=== PATIENT | female | born 1955 | race Caucasian/White ===

== ENCOUNTER → 2017-01-28 | Outpatient (CLI) | payer OTHER ==
[2017-01-28 11:09] LABS: BASO % 0.4 %; BASO ABS # 0.02 K/uL (0-0.2); COMPLETE YES; EOS % 2.8 %; HEMATOCRIT 42.3 % (37-47); IG% 0.2 %; LYMPH % 31.8 %; LYMPH ABS # 1.57 K/uL (1.2-3.4); MEAN CELL VOLUME 85.6 fL (80-100); MEAN CORPUSCULAR HEMOGLOBIN 28.1 pg (25-34); MEAN CORPUSCULAR HGB CONC 32.9 g/dl (32-36); MEAN PLATELET VOLUME 9.8 fL (7.4-10.4); MONO % 11.5 %; NEUT % 53.3 %; PLATELET COUNT 134 K/uL (130-400); RED BLOOD COUNT 4.94 M/uL (4.2-5.4); WHITE BLOOD COUNT 4.94 K/uL (4.8-10.8)
[2017-01-28 11:24] LABS: ALT/SGPT 158 U/L (12-78); AST/SGOT 87 U/L (15-37); BLOOD UREA NITROGEN 11 mg/dl (7-18); BUN/CREATININE RATIO 12.1 (10-20); CALCIUM 8.4 mg/dl (8.5-10.1); CARBON DIOXIDE 28 mmol/L (21-32); CHLORIDE 103 mmol/L (98-107); CREATININE 0.95 mg/dl (0.60-1.20); GLUCOSE 113 mg/dl (70-99); POTASSIUM 4.2 mmol/L (3.5-5.1); SODIUM 138 mmol/L (136-145); URIC ACID 4.9 mg/dl (2.6-7.2)
[2017-01-28 11:32] LABS: ALB/GLOB RATIO 0.9 (0.9-2); ALKALINE PHOSPHATASE 55 U/L (45-117); CHOLESTEROL 144 mg/dl (0-200); CHOLESTEROL/HDL RATIO 3.2; HDL CHOLESTEROL 45 mg/dl; LDL CHOLESTEROL CALCULATED 72 mg/dl; PHOSPHORUS 2.4 mg/dl (2.5-4.9); TRIGLYCERIDES 136 mg/dl (0-150); VERY LOW DENSITY LIPOPROT CALC 27 mg/dl
[2017-01-28 11:42] LABS: ESTIMATED AVERAGE GLUCOSE 131 mg/dl; HA1C FLAG Normal (Normal)
[2017-01-29 09:27] LABS: C-REACTIVE PROT HIGHSEN 3.3 MG/L
== END | disposition home or self-care (01) ==
LOC: C.LAB1850 07:53
PROVIDERS: ATTEND Family Medicine
DX: R73.09 Other abnormal glucose (principal); E55.9 Vitamin D deficiency, unspecified; D51.9 Vitamin B12 deficiency anemia, unspecified

== ENCOUNTER → 2017-08-21 | Outpatient (CLI) | payer OTHER ==
[2017-08-21 10:36] LABS: BASO % 0.5 %; BASO ABS # 0.02 K/uL (0-0.2); COMPLETE YES; EOS % 2.6 %; HEMATOCRIT 41.5 % (37-47); IG% 0.2 %; LYMPH % 38.1 %; LYMPH ABS # 1.59 K/uL (1.2-3.4); MEAN CELL VOLUME 86.3 fL (80-100); MEAN CORPUSCULAR HEMOGLOBIN 29.5 pg (25-34); MEAN CORPUSCULAR HGB CONC 34.2 g/dl (32-36); MEAN PLATELET VOLUME 9.8 fL (7.4-10.4); MONO % 11.3 %; NEUT % 47.3 %; PLATELET COUNT 119 K/uL (130-400); RED BLOOD COUNT 4.81 M/uL (4.2-5.4); WHITE BLOOD COUNT 4.17 K/uL (4.8-10.8)
[2017-08-21 10:51] LABS: ALT/SGPT 160 U/L (12-78); AST/SGOT 97 U/L (15-37); BLOOD UREA NITROGEN 16 mg/dl (7-18); BUN/CREATININE RATIO 18.9 (10-20); CALCIUM 8.7 mg/dl (8.5-10.1); CARBON DIOXIDE 24 mmol/L (21-32); CHLORIDE 106 mmol/L (98-107); CREATININE 0.86 mg/dl (0.60-1.20); GLUCOSE 111 mg/dl (70-99); SODIUM 137 mmol/L (136-145)
[2017-08-21 11:02] LABS: ALB/GLOB RATIO 0.9 (0.9-2); ALKALINE PHOSPHATASE 56 U/L (45-117); CHOLESTEROL 149 mg/dl (0-200); CHOLESTEROL/HDL RATIO 3.5; HDL CHOLESTEROL 43 mg/dl; LDL CHOLESTEROL CALCULATED 79 mg/dl; TRIGLYCERIDES 136 mg/dl (0-150); URIC ACID 5.5 mg/dl (2.6-7.2); VERY LOW DENSITY LIPOPROT CALC 27 mg/dl
[2017-08-21 11:08] LABS: ESTIMATED AVERAGE GLUCOSE 126 mg/dl; HA1C FLAG Normal (Normal)
[2017-08-22 14:28] LABS: C-REACTIVE PROT HIGHSEN 3.1 MG/L
== END | disposition home or self-care (01) ==
LOC: C.LAB1850 07:53
PROVIDERS: ATTEND Family Medicine
DX: R73.09 Other abnormal glucose (principal); E55.9 Vitamin D deficiency, unspecified; D51.9 Vitamin B12 deficiency anemia, unspecified

== ENCOUNTER → 2018-02-16 | Outpatient (CLI) | payer OTHER ==
[2018-02-16 10:10] LABS: BASO % 0.6 %; BASO ABS # 0.03 K/uL (0-0.2); EOS % 2.4 %; EOS ABS # 0.12 K/uL (0-0.5); HEMOGLOBIN 14.8 g/dL (12.0-16.0); LYMPH % 33.3 %; LYMPH ABS # 1.68 K/uL (1.2-3.4); MEAN CELL VOLUME 85.7 fL (80-100); MEAN CORPUSCULAR HEMOGLOBIN 28.2 pg (25-34); MEAN CORPUSCULAR HGB CONC 32.9 g/dl (32-36); MEAN PLATELET VOLUME 9.9 fL (7.4-10.4); MONO % 11.3 %; MONO ABS # 0.57 K/uL (0.11-0.59); NEUT % 52.4 %; NEUT ABS # 2.65 K/uL (1.4-6.5); PLATELET COUNT 121 K/uL (130-400); RED CELL DISTRIBUTION WIDTH CV 13.1 % (11.5-14.5); RED CELL DISTRIBUTION WIDTH SD 41.2 fL (36.4-46.3); WHITE BLOOD COUNT 5.05 K/uL (4.8-10.8)
[2018-02-16 10:39] LABS: ALBUMIN 3.7 gm/dl (3.4-5.0); ALT/SGPT 169 U/L (12-78); AST/SGOT 100 U/L (15-37); BLOOD UREA NITROGEN 15 mg/dl (7-18); CALCIUM 9.4 mg/dl (8.5-10.1); CARBON DIOXIDE 23 mmol/L (21-32); CHOLESTEROL 161 mg/dl (0-200); CREATININE 0.82 mg/dl (0.60-1.20); GLUCOSE 110 mg/dl (70-99); POTASSIUM 4.1 mmol/L (3.5-5.1); SODIUM 135 mmol/L (136-145); URIC ACID 4.7 mg/dl (2.6-7.2)
[2018-02-16 10:49] LABS: ALKALINE PHOSPHATASE 62 U/L (45-117); LDL CHOLESTEROL CALCULATED 84 mg/dl; TOTAL PROTEIN 8.3 gm/dl (6.4-8.2); TRANSFERRIN 267 mg/dl (200-360)
== END | disposition home or self-care (01) ==
LOC: C.LAB1850 09:10
PROVIDERS: ATTEND Family Medicine
DX: E88.81 Metabolic syndrome and other insulin resistance (principal); E55.9 Vitamin D deficiency, unspecified; D51.9 Vitamin B12 deficiency anemia, unspecified; E78.9 Disorder of lipoprotein metabolism, unspecified; R53.83 Other fatigue

== ENCOUNTER → 2018-02-18 | Outpatient (CLI) | payer OTHER ==
--- NOTE | 2018-02-18 08:29 | DIAGNOSTIC IMAGING REPORT ---
BILIARY ULTRASOUND CLINICAL HISTORY: RUQ PAIN COMPARISON STUDY: No previous studies for comparison. FINDINGS: The study was difficult from a technical standpoint due to the patient's body habitus. The pancreas appeared normal as visualized. There is increased hepatic echogenicity, possibly secondary to hepatic steatosis. There is no ductal dilatation. The common bile duct measured 5 mm. There is a 17 mm gallstone. There is no gallbladder wall thickening and no evidence of pericholecystic fluid. There is no evidence of hydronephrosis. IMPRESSION: 1. Cholelithiasis. No evidence of ductal dilatation 2. Possible hepatic steatosis Electronically signed by: Benny Feliciano M.D. 02/18/2018 8:27 AM Dictated Date/Time: 02/18/2018 8:26 AM
[2018-02-18 11:14] LABS: HEP C IGG 13 YRS+OLDER_RFLX NEG (NEG)
[2018-02-20 17:45] LABS: ANA SCREEN TC 249X POSITIVE (NEGATIVE)
== END | disposition home or self-care (01) ==
LOC: C.ULTR 07:50
PROVIDERS: ATTEND Family Medicine
DX: R94.5 Abnormal results of liver function studies (principal); M25.50 Pain in unspecified joint; R10.11 Right upper quadrant pain; K80.20 Calculus of gallbladder without cholecystitis without obstruction

== ENCOUNTER 2024-05-07 15:58 | Observation (INO) ==
--- NOTE | 2024-05-07 16:37 | Emergency Department Note ---
Impression & Plan Diarrhea, Pancytopenia ED Provider Note ED Provider Note NAME: AZEB DELGADO AGE:68 SEX: Female : 1955 ARRIVES VIA: Private vehicle INFORMANT: Patient ED PROVIDER(s): Livier Linares DO CHIEF COMPLAINT: Referred from oncology HPI: This is a 68-year-old female with a history of metastatic ovarian cancer who presents to the emergency department after being referred here by Dr. Moreland, of oncology after he saw her in clinic today. Patient underwent recent surgery at [facility] and was discharged 1 week ago. She states she underwent a chemotherapeutic infusion into the peritoneal cavity. He states she has had diarrhea since this infusion. Due to abnormal labs noted by her PCP on follow-up she came in yesterday was given IV fluids, labs rechecked, and physician spoke with Dr. Moreland who recommended empiric Levaquin and discharged home with close follow-up. She was seen in clinic today by him, repeat labs obtained which showed a worsening ANC and worsening platelet level. Patient with persistent diarrhea. While this all is likely the side effects of her chemotherapy, he is concern for worsening condition and risk of sepsis. He recommended cultures including stool cultures for C. difficile, IV fluid hydration, check of patient's labs otherwise, and admission for continued monitoring. Patient states she has had diarrhea since discharge, approximately 6 episodes daily. She states she is intermittently noted blood but had also been on Eliquis prophylactically since her surgery. She states her last dose was yesterday morning and she was instructed to stop it last night. She has not seen any blood in recent days. She denies any coming abdominal pain or cramping, denies any sense of bloating. She denies any nausea or vomiting although states she has had difficulty eating and maintaining hydration as every time she eats or drinks she has another episode of diarrhea. She denies fevers or chills. PAST MEDICAL HISTORY:See Below PAST SURGICAL HISTORY:See Below FAMILY HISTORY:See Below SOCIAL HISTORY:See Below HOME MEDICATIONS:See Below ALLERGIES:See Below VITALS:See Below PHYSICAL EXAMINATION: GENERAL: alert, well nourished, no distress, non-toxic, alopecia EYE EXAM: normal conjunctiva, PERRL and EOM's grossly intact OROPHARYNX: no exudate, no erythema, lips, buccal mucosa, and tongue normal and mucous membranes are moist NECK: supple, no nuchal rigidity, no adenopathy, non-tender LUNGS: Clear to auscultation. Normal chest wall mechanics, no w/r/r HEART: no murmurs, S1 normal and S2 normal, port noted left ant/sup chest wall ABDOMEN: abdomen soft, non-tender, normo-active bowel sounds, no masses, no rebound or guarding. BACK: Back is symmetrical on inspection and there is no deformity, no midline tenderness, no CVA tenderness. SKIN: no rashes, petechiae, orbruising UPPER EXTREMITIES: upper extremities are grossly normal. FROM, nml pulses b/l. LOWER EXTREMITIES: No pitting edema. FROM, nml pulses b/l. NEURO EXAM: Normal sensorium, cranial nerves II-XII grossly intact, normal speech, no facial droop,nogross weakness of arms, no gross weakness of legs. Gross sensation intact. No ataxia. Vital Signs: reviewed and remarkable Differential Diagnosis: dehydration, stroke, anemia, hypoglycemia, hyponatremia, hypernatremia, urinary tract infection, pneumonia, bronchitis, sepsis, gastroenteritis, additional abdominal pathology, metabolic abnormalities, as well as others were considered MEDICAL DECISION MAKING: This is a 68-year-old female who presents emergency department after being referred here by oncology who also came to the emergency department with her to help facilitate expeditious treatment and admission. She was afebrile and vital signs stable. Patient with persistent diarrhea since recent surgery at [facility]. Labs drawn and sent, IV established, EKG and chest ray performed at bedside interpreted me and patient monitored on telemetry. She was started on IV fluids due to her ongoing diarrhea. Culture sent additionally. Case was discussed with oncology in the emergency department, Dr. Moreland. Patient had no abdominal pain and did asked to eat and drink. No additional imaging performed at this time. Case discussed with [facility] hospitalist team for additional evaluation and management. Consultation(s): 1604: Discussed with Dr. Moreland when patient arrived in the ER. 1800: Discussed with Dr. Woodard, [facility] hospitalist team. ER Treatment Provided: See below Diagnostics Interpreted By Me: -ECG: Normal sinus at 94, normal axis, normal intervals, no nonspecific ST/T wave changes -Cardiac Monitoring: An order was placed for continuous cardiac monitoring. The monitor shows a rate of 80 with normal sinus rhythm. -Laboratory studies: As stated above and show below. -Imaging studies: X-ray Chest: A single view study of the chest was reviewed and was negative for cardiomegaly, focal infiltrate, effusion, pulmonary edema, or wide mediastinum. Triage Nursing Note Reviewed Prior/Outside Records Reviewed -outpatient oncology office note reviewed Past Med/Surg History Problem List (Updated 05/07/24 @ 23:44 by Livier Linares DO) Pancytopenia (Acute) Antineoplastic chemotherapy induced pancytopenia Diarrhea (Acute) Status post surgery (Acute) Pancytopenia (Acute) Pancytopenia Recurrent herpes simplex Carcinoma of peritoneum Atypical glandular cells on cervical Pap smear Thickened endometrium Abnormal CT scan Osteopenia of both hips Migraine headache with aura Mixed hyperlipidemia Alcohol dependence with alcohol-induced mood disorder Impaired glucose metabolism Gastritis Cirrhosis Encounter for pre-operative examination Hypertension Endometrial polyp Adhesive capsulitis of left shoulder Steatohepatitis Liver nodule Adult situational stress disorder Postablative hypothyroidism Chronic gastritis without bleeding hx-"no current issues" Medical History Peritoneal carcinomatosis stage 3, official dx 11/27/23; most recent chemo tx 12/09/23-next tx 12/30/23 Diabetes diet controlled Hyperlipidemia pt denies-no current meds Genital HSV History of skin cancer BCC/SCC Cirrhosis Follows with [facility], "compensated, chronic stable.. MELD labs appear unremarkable" per 03/2023 visit GERD (gastroesophageal reflux disease) hx-no current meds Anxiety Migraine Hypertension Arthritis Graves' disease Hx- had iodine treatment Surgical History Port-A-Cath in place (01/13/24) Insertion of Left Subclavian Access Port with Fluoroscopy - Jian Link DO Hx of laparoscopy 10/2023; w/bx. Status post hysteroscopy w/d&c, colposcopy Hx of colonoscopy History of esophagogastroduodenoscopy (EGD) Status post Mohs surgery Nose Hx laparoscopic cholecystectomy Laparoscopic Cholecystectomy, right lobe liver biopsy; enterolysis (09/06/2021, [facility]) History of breast biopsy benign History of dilatation and curettage Family History Grandmother Cancer stomach Father Alcoholism Mother Diabetes Depression Hypertension Lung cancer Denies family history of Ovarian cancer Prostate cancer Myocardial infarction Breast cancer Colorectal cancer Social History Smoking Status: Never smoker Second Hand Exposure: Yes (hx as child); Do You Dip or Chew Tobacco: No; Hx Alcohol Use: No Hx Substance Use: No Preferred Language: Kinyarwanda Communication Ability: Effective Visual Impairment: No Limitations Assistant Project Manager Required: No Beliefs That Will Affect Care: None marital status: Current Living Situation: Alone Current Living Situation Comment: Lives alone in an apartment current occupational status: retired How many Children do You have: 3 Feels Safe at Home: Yes Safety Concerns: Feels Safe At This Time Diet: regular during the past year weight has: decreased > 10 lbs Seatbelt Use: always Assistive Devices: Cane and Glasses Allergies Allergies Allergy/AdvReac Type Severity Reaction Status Date / Time azithromycin Allergy Unknown Hives Verified 05/07/24 19:28 (hands) clarithromycin [From Biaxin] Allergy Unknown Unknown Verified 05/07/24 19:28 bee venom protein (honey bee) Allergy Hives Verified 05/07/24 19:28 Home Meds Home Medications Medication Instructions Recorded Confirmed prochlorperazine maleate 10 mg 10 mg PO Q6H PRN Nausea And 02/04/24 05/07/24 tablet Vomiting acetaminophen 500 mg tablet 1,000 mg PO Q8H PRN Pain 05/04/24 05/07/24 apixaban 2.5 mg tablet 2.5 mg PO .ON HOLD 05/04/24 05/07/24 oxycodone 5 mg tablet 5 mg PO Q6H PRN pain 05/04/24 05/07/24 Previous Rx's Medication Instructions Recorded epinephrine 0.3 mg/0.3 mL 0.3 mg (0.3 mL) IM UD PRN Allergic 08/07/22 injection, auto-injector Reaction #2 ea rizatriptan 10 mg tablet (Maxalt) See Rx Instructions PO .COMPLEX #7 11/11/22 tabs acyclovir 400 mg tablet 400 mg PO TID PRN herpes outbreak 12/31/23 #90 tabs citalopram 10 mg tablet 10 mg PO QAM #90 tabs 05/06/24 levofloxacin 500 mg tablet 500 mg PO DAILY 7 days #7 tabs 05/06/24 levothyroxine 150 mcg tablet 150 mcg PO QAM #90 tabs 05/06/24 losartan 100 mg tablet 100 mg PO QAM #90 tabs 05/06/24 Results & Data (ED) Vital Signs Vital Signs - 24 hr 05/07/24 16:04 05/07/24 17:18 05/07/24 17:30 Temperature 37.3 C Temperature Source Oral Pulse Rate 94 H 78 Pulse Rate from SpO2 Sensor Respiratory Rate 18 Respiratory Effort / Characteristics Non-Labored Respiratory Depth Normal Respiratory Pattern Regular Blood Pressure 126/80 Blood Pressure Mean 95 Pulse Oximetry 97 98 Oxygen Delivery Method Room Air Room Air Sepsis Recent Fever Within 48 Hours No Sepsis New/Unexplained Change in Mental Status N/A Sepsis Action Taken by Nursing No Action Required 05/07/24 17:45 05/07/24 18:00 Temperature Temperature Source Pulse Rate 77 70 Pulse Rate from SpO2 Sensor 76 70 Respiratory Rate 17 14 Respiratory Effort / Characteristics Respiratory Depth Respiratory Pattern Blood Pressure 134/92 131/74 Blood Pressure Mean 106 93 Pulse Oximetry 98 98 Oxygen Delivery Method Room Air Room Air Sepsis Recent Fever Within 48 Hours Sepsis New/Unexplained Change in Mental Status Sepsis Action Taken by Nursing Laboratory Data 05/07/24 17:10 05/07/24 17:10 Lab Results 05/07/24 05/07/24 Range/Units 17:10 17:28 WBC 1.82 L (4.8-10.8) K/ul RBC 3.30 L (4.20-5.40) M/uL Hgb 9.5 L (12.0-16.0) g/dl Hct 30.7 L (37.0-47.0) % MCV 93.0 (80.0-100.0) fL MCH 28.8 (25.0-34.0) pg MCHC 30.9 L (32.0-36.0) g/dL RDW Std Deviation 41.1 (36.4-46.3) fL RDW Coeff of Willem 12.7 (11.5-14.5) % Plt Count 30 L (130-400) K/uL MPV 12.4 (9.4-12.4) fL Immature Gran % (Auto) 0.5 % Neut % (Auto) 21.0 % Lymph % (Auto) 42.9 % Boundary % (Auto) 26.9 % Eos % (Auto) 8.2 % Baso % (Auto) 0.5 % Neut # (Auto) 0.38 L* (1.40-6.50) K/uL Lymph # (Auto) 0.78 L (1.20-3.40) K/uL Boundary # (Auto) 0.49 (0.11-0.59) K/uL Eos # (Auto) 0.15 (0.00-0.50) K/uL Baso # (Auto) 0.01 (0.00-0.20) K/uL Immature Gran # (Auto) 0.01 (0.01-0.20) K/uL Ovalocytes 1+ Sodium 138 (136-145) mmol/L Potassium 3.5 (3.5-5.1) mmol/L Chloride 108 H (98-107) mmol/L Carbon Dioxide 23 (21-32) mmol/L Anion Gap 7 (3-11) BUN 9 (6-23) mg/dl Creatinine 0.79 (0.6-1.2) mg/dl Est Cr Clr Drug Dosing 64.2 ml/min Est GFR ( Amer) 89.1 ml/min Est GFR (Non-Af Amer) 76.9 ml/min BUN/Creatinine Ratio 11.4 (10-20) Glucose 115 H (70-99(Fasting)) mg/dl Lactate 1.1 (0.4-2.0) mmol/L Calcium 9.0 (8.6-10.3) mg/dl Phosphorus 3.0 (2.5-4.9) mg/dl Magnesium 1.7 (1.7-2.4) mg/dl Total Bilirubin 0.2 (0.2-1.0) mg/dl Direct Bilirubin 0.0 (0-0.2) mg/dl AST 26 (13-39) U/L ALT 36 (7-52) U/L Alkaline Phosphatase 44 (34-104) U/L Troponin I High Sens 8.3 (0-14) pg/ml Total Protein 6.4 (6.0-8.3) gm/dl Albumin 3.4 (3.4-5.0) gm/dl Procalcitonin 0.08 (0-0.5) ng/ml Administered Medications Acyclovir (Acyclovir 400 Mg Tab) 400 mg PO TID FLORES Stop: 05/12/24 22:35 Last Admin: 05/07/24 23:25 Dose: 400 mg Documented By: HILDA Lactated Ringer's (Lr) 1,000 mls @ 125 mls/hr IV .Q8H FLORES Stop: 05/08/24 17:59 Last Admin: 05/07/24 18:10 Dose: 125 mls/hr Documented By: BEA Levofloxacin (Levofloxacin 500 Mg Tab) 500 mg PO Q24H FLORES; Protocol Stop: 06/06/24 21:59 Last Admin: 05/07/24 23:25 Dose: 500 mg Documented By: KS Discontinued Medications Filgrastim (Filgrastim 300 Mcg/Ml Vial) 300 mcg SQ ONE ONE Stop: 05/07/24 21:31 Last Admin: 05/07/24 23:24 Dose: 300 mcg Documented By: HILDA Lactated Ringer's (Lr) 1,000 mls @ 999 mls/hr IV .Q1H1M ONE Stop: 05/07/24 17:06 Last Infusion: 05/07/24 18:06 Dose: Infused Documented By: Admin: 05/07/24 17:08 Dose: 999 mls/hr Documented By: BEA Potassium Chloride (Potassium Chloride Crtab 20 Meq Tabcr) 20 meq PO NOW STA Stop: 05/07/24 18:59 Last Admin: 05/07/24 19:21 Dose: 20 meq Documented By: [facility] Imaging Data Radiologist's Impression: Chest X-Ray 05/07/24 16:06 XR chest 1V portable CLINICAL HISTORY: Sepsis TECHNIQUE: Single frontal radiograph of the chest was obtained. Comparison: Comparison is made to chest radiograph 01/13/2024 FINDINGS: No lines and tubes are seen. The cardiomediastinal silhouette is normal. The lungs are clear. No evidence of pleural effusion or pneumothorax. IMPRESSION: No acute abnormalities and in particular no radiographic evidence of pneumonia. ACT 112: Negative or not required by law. Electronically signed by: Osmany La M.D. 05/07/2024 5:13 PM Discharge Plan Visit Data Chief Complaint: Diarrhea Stated Complaint: DIARRHEA, PANCYTOPENIA ED Provider: Livier Linares Discharge Problem: Diarrhea, Pancytopenia Patient Disposition: Admitted As Inpatient Discharge Instructions Interventions: ED Discharge Assessment Last Done: 05/07/24 22:02
[2024-05-07] MEDS: LACTATED RINGER'S 1,000 ML IV ONE (17:08)
--- NOTE | 2024-05-07 17:15 | XRay Report ---
XR chest 1V portable CLINICAL HISTORY: Sepsis TECHNIQUE: Single frontal radiograph of the chest was obtained. Comparison: Comparison is made to chest radiograph 01/13/2024 FINDINGS: No lines and tubes are seen. The cardiomediastinal silhouette is normal. The lungs are clear. No evid ence of pleural effusion or pneumothorax. IMPRESSION: No acute abnormalities and in particular no radiographic evidence of pneumonia. ACT 112: Negative or not required by law. Electronically signed by: Osmany La M.D. 05/07/2024 5:13 PM
[2024-05-07 17:37] LABS: Hematocrit (blood only) 30.7 % (37.0-47.0); Hemoglobin 9.5 g/dl (12.0-16.0); Mean Corpuscular Hemoglobin 28.8 pg (25.0-34.0); Mean Corpuscular Hgb Conc 30.9 g/dL (32.0-36.0); Mean Platelet Volume 12.4 fL (9.4-12.4); Platelet Count 30 K/uL (130-400); RDW Coefficient of Variation 12.7 % (11.5-14.5); RDW Standard Deviation 41.1 fL (36.4-46.3); White Blood Count 1.82 K/ul (4.8-10.8)
[2024-05-07 17:54] LABS: Albumin Level 3.4 gm/dl (3.4-5.0); BUN Creatinine Ratio 11.4 (10-20); Bilirubin,Total 0.2 mg/dl (0.2-1.0); Creatinine Clr Calc Pharmacy 64.2 ml/min; Est GFR (African American) 89.1 ml/min; Est GFR (Non-African American) 76.9 ml/min; Magnesium 1.7 mg/dl (1.7-2.4); Potassium 3.5 mmol/L (3.5-5.1); Total Protein 6.4 gm/dl (6.0-8.3)
[2024-05-07 18:01] LABS: Troponin I High Sensitivity 8.3 pg/ml (0-14)
[2024-05-07 18:02] LABS: Basophils # (auto) 0.01 K/uL (0.00-0.20); Basophils % (auto) 0.5 %; Eosinophils # (auto) 0.15 K/uL (0.00-0.50); Eosinophils % (auto) 8.2 %; Immature Granulocytes # (auto) 0.01 K/uL (0.01-0.20); Immature Granulocytes % (auto) 0.5 %; Lymphocytes # (auto) 0.78 K/uL (1.20-3.40); Lymphocytes % (auto) 42.9 %; Monocytes # (auto) 0.49 K/uL (0.11-0.59); Monocytes % (auto) 26.9 %; Neutrophils # (auto) 0.38 K/uL (1.40-6.50); Ovalocytes 1+
--- NOTE | 2024-05-07 18:09 | History & Physical Report ---
Date of Service May 07, 2024 Assessment & Plan (1) Antineoplastic chemotherapy induced pancytopenia: Plan: Neupogen Consult hematology Continue empiric Levaquin Shingles lesions but no cellulitis on back Holding Eliquis while Plt < 50 Follow up blood cultures - no fever to suggest need for broader spectrum antibiotics (2) Diarrhea: Plan: Stool and c. diff PCR Start Imodium PRN if negative (3) Peritoneal carcinomatosis: Plan VTE Prophyalxis - ELiquis on hold Diet - low fiber, heart healthy Disposition - admit to med/surg Admission and Anticipated Discharge Date Admission Date: May 07, 2024 History of Present Illness Chief Complaint: Diarrhea Pancytopenia Primary Care Provider: Sam Almonte MD Chelsey Sexton is a 68 year old female with primary peritoneal carcinoma with carcinomatosis. Previously treated with carboplatin and Taxol chemotherapy - last treatment March 02 and underwent omentectomy, appendectomy, b/l salpingo- oophorectomy, cytoreduction of tumor left paracolic gutter and cytoreduction of tumor from pelvis and small bowel with instillation of heated intraperitoneal chemotherapy on April 23. Since the surgery at [facility] she has been having diarrhea with 6 bowel movements a day. Loose and watery. No fever or chills. Her pancytopenia has also been getting worse and her oncologist recommended coming to the ER for blood cultures, stool pCR and c. diff testing today. She denies any significant abdominal pain, nausea or vomiting. She took an immodium this morning and diarrhea has actually improved today. She also noted an outbreak of shingles on her back for which she started acyclovir 2 days ago although she think she lesions have been going on for longer. She was seen in the ER yesterday and started on empiric Levaquin due to pancytopenia. Allergies Allergy/AdvReac Type Severity Reaction Status Date / Time azithromycin Allergy Unknown Hives Verified 05/07/24 19:28 (hands) clarithromycin [From Biaxin] Allergy Unknown Unknown Verified 05/07/24 19:28 bee venom protein (honey bee) Allergy Hives Verified 05/07/24 19:28 Home Medications Medication Instructions Recorded Confirmed Type epinephrine 0.3 mg/0.3 mL 0.3 mg (0.3 mL) IM UD PRN Allergic 08/07/22 05/07/24 Rx injection, auto-injector Reaction #2 ea rizatriptan 10 mg tablet (Maxalt) See Rx Instructions PO .COMPLEX #7 11/11/22 05/07/24 Rx tabs acyclovir 400 mg tablet 400 mg PO TID PRN herpes outbreak 12/31/23 05/07/24 Rx #90 tabs prochlorperazine maleate 10 mg 10 mg PO Q6H PRN Nausea And 02/04/24 05/07/24 History tablet Vomiting acetaminophen 500 mg tablet 1,000 mg PO Q8H PRN Pain 05/04/24 05/07/24 History apixaban 2.5 mg tablet 2.5 mg PO .ON HOLD 05/04/24 05/07/24 History oxycodone 5 mg tablet 5 mg PO Q6H PRN pain 05/04/24 05/07/24 History citalopram 10 mg tablet 10 mg PO QAM #90 tabs 05/06/24 05/07/24 Rx levofloxacin 500 mg tablet 500 mg PO DAILY 7 days #7 tabs 05/06/24 05/07/24 Rx levothyroxine 150 mcg tablet 150 mcg PO QAM #90 tabs 05/06/24 05/07/24 Rx losartan 100 mg tablet 100 mg PO QAM #90 tabs 05/06/24 05/07/24 Rx Past Med/Surg History Problem List (Updated 05/07/24 @ 23:44 by Livier Linares DO) Pancytopenia (Acute) Antineoplastic chemotherapy induced pancytopenia Diarrhea (Acute) Status post surgery (Acute) Pancytopenia (Acute) Pancytopenia Recurrent herpes simplex Carcinoma of peritoneum Atypical glandular cells on cervical Pap smear Thickened endometrium Abnormal CT scan Osteopenia of both hips Migraine headache with aura Mixed hyperlipidemia Alcohol dependence with alcohol-induced mood disorder Impaired glucose metabolism Gastritis Cirrhosis Encounter for pre-operative examination Hypertension Endometrial polyp Adhesive capsulitis of left shoulder Steatohepatitis Liver nodule Adult situational stress disorder Postablative hypothyroidism Chronic gastritis without bleeding hx-"no current issues" Medical History Peritoneal carcinomatosis stage 3, official dx 11/27/23; most recent chemo tx 12/09/23-next tx 12/30/23 Diabetes diet controlled Hyperlipidemia pt denies-no current meds Genital HSV History of skin cancer BCC/SCC Cirrhosis Follows with [facility], "compensated, chronic stable.. MELD labs appear unremarkable" per 03/2023 visit GERD (gastroesophageal reflux disease) hx-no current meds Anxiety Migraine Hypertension Arthritis Graves' disease Hx- had iodine treatment Surgical History Port-A-Cath in place (01/13/24) Insertion of Left Subclavian Access Port with Fluoroscopy - Jian Link DO Hx of laparoscopy 10/2023; w/bx. Status post hysteroscopy w/d&c, colposcopy Hx of colonoscopy History of esophagogastroduodenoscopy (EGD) Status post Mohs surgery Nose Hx laparoscopic cholecystectomy Laparoscopic Cholecystectomy, right lobe liver biopsy; enterolysis (09/06/2021, [facility]) History of breast biopsy benign History of dilatation and curettage Family History Grandmother Cancer stomach Father Alcoholism Mother Diabetes Depression Hypertension Lung cancer Denies family history of Ovarian cancer Prostate cancer Myocardial infarction Breast cancer Colorectal cancer Social History Smoking Status: Never smoker Second Hand Exposure: Yes (hx as child); Do You Dip or Chew Tobacco: No; Hx Alcohol Use: No Hx Substance Use: No Preferred Language: Libyan Communication Ability: Effective Visual Impairment: No Limitations Hot Box Checker Required: No Beliefs That Will Affect Care: None marital status: Current Living Situation: Alone Current Living Situation Comment: Lives alone in an apartment current occupational status: retired How many Children do You have: 3 Feels Safe at Home: Yes Safety Concerns: Feels Safe At This Time Diet: regular during the past year weight has: decreased > 10 lbs Seatbelt Use: always Assistive Devices: Cane and Glasses Review of Systems Review of Systems: All systems reviewed & are unremarkable except as noted in HPI & below Physical Exam Constitutional: WD/WN, vitals as above Eyes: PERRL, conjunctivae normal, anicteric sclerae ENMT: external ear and nose normal, oropharynx normal Respiratory: normal respiratory effort, lungs clear to auscultation Cardiovascular: RRR, no murmur, no edema Gastrointestinal (Abdomen): normal bowel sounds, soft, nontender, no hepatosplenomegaly Musculoskeletal: no cyanosis or clubbing, extremities motor strength 5/5 Skin: crusted lesion on back without surrounding cellulitis changes Neurologic: moves all extremities and awake; not confused Psychiatric: A+Ox3, euthymic affect Results & Data Results & Data Vital Signs (Past 12 Hours) Vital Signs Temp Pulse Resp BP Pulse Ox O2 Del Method 05/07/24 18:00 70 14 131/74 98 Room Air 05/07/24 17:45 77 17 134/92 98 Room Air 05/07/24 17:18 98 Room Air 05/07/24 16:04 37.3 C 94 H 18 126/80 97 Room Air Laboratory Results Abnormal lab results 05/07/24 Range/Units 17:10 WBC 1.82 L (4.8-10.8) K/ul RBC 3.30 L (4.20-5.40) M/uL Hgb 9.5 L (12.0-16.0) g/dl Hct 30.7 L (37.0-47.0) % MCHC 30.9 L (32.0-36.0) g/dL Plt Count 30 L (130-400) K/uL Neut # (Auto) 0.38 L* (1.40-6.50) K/uL Lymph # (Auto) 0.78 L (1.20-3.40) K/uL Chloride 108 H (98-107) mmol/L Glucose 115 H (70-99(Fasting)) mg/dl Diagnostic Findings XR chest 1V portable CLINICAL HISTORY: Sepsis TECHNIQUE: Single frontal radiograph of the chest was obtained. Comparison: Comparison is made to chest radiograph 01/13/2024 FINDINGS: No lines and tubes are seen. The cardiomediastinal silhouette is normal. The lungs are clear. No evidence of pleural effusion or pneumothorax. IMPRESSION: No acute abnormalities and in particular no radiographic evidence of pneumonia. Medications Administered ER Medications Given: LR bolus 1L LR @ 125ml/hr ECG Rate (beats per minute): 94 Rhythm: normal sinus Findings: no acute ischemic change Comparison ECG Date: from (May 06, 2024) Change: no significant change Code Status & VTE Plan Code Status Full VTE Prophylaxis Plan VTE Prophylaxis will be ordered: Yes PG Care Time/CCT Total # of Minutes Spent Total Time Spent with Patient: Total time spent is greater than 50% in coordination of care (as documented) at patient's floor/unit and/or counseling patient: Coding Level of Care Code 31846 INT INP/OBS CARE MIN Diagnoses Antineoplastic chemotherapy induced pancytopenia D61.810; T45.1X5A Diarrhea R19.7 Peritoneal carcinomatosis C78.6
[2024-05-07] MEDS: LACTATED RINGER'S 1,000 ML IV SCH (18:10)
[2024-05-07 18:37] LABS: Appearance Urine Clear (Clear); Bilirubin Urine Negative (Negative); Blood Urine Negative (Negative); Color Urine Yellow; Glucose Urine UA Negative (Negative); Ketones Urine Negative (Negative); Leukocyte Esterase Urine Negative (Negative); Nitrite Urine Negative (Negative); Protein Urine Negative (Negative); Specific Gravity Urine 1.007 (1.000-1.030); Urobilinogen Urine Negative (Negative)
[2024-05-07 19:03] LABS: Adenovirus F 40/41 PCR Not Detected (NotDetected); Astrovirus PCR Not Detected (NotDetected); Campylobacter PCR Not Detected (NotDetected); Cryptosporidium PCR Not Detected (NotDetected); Cyclospora cayetanensis PCR Not Detected (NotDetected); Entamoeba histolytica PCR Not Detected (NotDetected); Enteroaggregative E.coli(EAEC) Not Detected (NotDetected); Enteropathogenic E.coli (EPEC) Not Detected (NotDetected); Enterotoxigenic E.coli (ETEC) Not Detected (NotDetected); Giardia lamblia PCR Not Detected (NotDetected); Norovirus GI/GII PCR Not Detected (NotDetected); Plesiomonas shigelloides PCR Not Detected (NotDetected); Rotavirus A PCR Not Detected (NotDetected); Salmonella PCR Not Detected (NotDetected); Sapovirus PCR Not Detected (NotDetected); Shiga-like Toxin E.coli (STEC) Not Detected (NotDetected); Shigella/Enteroinvasive E.coli Not Detected (NotDetected); Vibrio cholerae PCR Not Detected (NotDetected); Vibrio species PCR Not Detected (NotDetected); Yersinia enterocolitica PCR Not Detected (NotDetected)
[2024-05-07] MEDS: POTASSIUM CHLORIDE CRTAB 20 MEQ TABCR PO STA (19:21)
[2024-05-07] MEDS ORDERED: oxyCODONE HCL IR 5 MG TAB (IMMEDIATE RELEASE) PO PRN (22:36)
[2024-05-07] MEDS ORDERED: PROCHLORPERAZINE MALEATE 10 MG TAB PO PRN (22:36)
[2024-05-07] MEDS: FILGRASTIM 300 MCG/ML VIAL SQ ONE (23:24)
[2024-05-07] MEDS: ACYCLOVIR 400 MG TAB PO SCH (23:25)
[2024-05-07] MEDS: levoFLOXacin 500 MG TAB PO SCH (23:25)
[2024-05-08] MEDS: LEVOTHYROXINE SODIUM 150 MCG TABLET PO SCH (05:26)
--- NOTE | 2024-05-08 07:20 | Electrocardiogram Report ---
Test Reason : Blood Pressure : / mmHG Vent. Rate : 094 BPM Atrial Rate : 094 BPM P-R Int : 168 ms QRS Dur : 090 ms QT Int : 350 ms P-R-T Axes : 034 026 041 degrees QTc Int : 437 ms Normal sinus rhythm Nonspecific T wave abnormality Abnormal ECG When compared with ECG of 06-MAY-2024 19:21, No significant change was found Confirmed by Ramon Aden ([id number]) on 05/08/2024 7:20:41 AM Referred By: Chris Moreland Confirmed By:Tigre Aden
[2024-05-08 08:26] LABS: Albumin Globulin Ratio 1.1 (0.9-2); Albumin Level 3.2 gm/dl (3.4-5.0); Bilirubin,Total 0.3 mg/dl (0.2-1.0); Calcium 8.8 mg/dl (8.6-10.3); Creatinine Clr Calc Pharmacy 72.5 ml/min; Est GFR (African American) 103.2 ml/min; Globulin 2.9 gm/dl (2.5-4.0); Magnesium 1.5 mg/dl (1.7-2.4); Phosphorus 3.2 mg/dl (2.5-4.9); Potassium 3.8 mmol/L (3.5-5.1); Total Protein 6.1 gm/dl (6.0-8.3)
[2024-05-08 08:37] LABS: Basophils # (auto) 0.01 K/uL (0.00-0.20); Basophils % (auto) 0.5 %; Eosinophils # (auto) 0.11 K/uL (0.00-0.50); Hematocrit (blood only) 26.5 % (37.0-47.0); Hemoglobin 8.5 g/dl (12.0-16.0); Immature Granulocytes # (auto) 0.02 K/uL (0.01-0.20); Immature Granulocytes % (auto) 0.9 %; Lymphocytes # (auto) 0.56 K/uL (1.20-3.40); Lymphocytes % (auto) 25.7 %; Mean Corpuscular Hemoglobin 29.7 pg (25.0-34.0); Mean Corpuscular Hgb Conc 32.1 g/dL (32.0-36.0); Mean Corpuscular Volume 92.7 fL (80.0-100.0); Mean Platelet Volume 11.1 fL (9.4-12.4); Monocytes # (auto) 0.58 K/uL (0.11-0.59); Monocytes % (auto) 26.6 %; Neutrophils % (auto) 41.3 %; Platelet Count 24 K/uL (130-400); Platelet Estimate Signific. Decreased (Normal); RDW Coefficient of Variation 12.7 % (11.5-14.5); RDW Standard Deviation 41.1 fL (36.4-46.3); Red Blood Count 2.86 M/uL (4.20-5.40); White Blood Count 2.18 K/ul (4.8-10.8)
[2024-05-08] MEDS: CITALOPRAM 20 MG TAB PO SCH (09:26)
[2024-05-08] MEDS: LOSARTAN POTASSIUM 50 MG TAB PO SCH (09:27)
[2024-05-08] MEDS: MAGNESIUM SULFATE / D5W 1 GM/100 ML BAG IV SCH (12:45)
[2024-05-08] MEDS: LOPERAMIDE HCL 2 MG CAP PO PRN (13:15)
--- NOTE | 2024-05-08 18:13 | Discharge Summary ---
Date of Service May 08, 2024 Admission HPI Per Admitting Provider Chelsey Sexton is a 68 year old female with primary peritoneal carcinoma with carcinomatosis. Previously treated with carboplatin and Taxol chemotherapy - last treatment March 02 and underwent omentectomy, appendectomy, b/l salpingo- oophorectomy, cytoreduction of tumor left paracolic gutter and cytoreduction of tumor from pelvis and small bowel with instillation of heated intraperitoneal chemotherapy on April 23. Since the surgery at [facility] she has been having diarrhea with 6 bowel movements a day. Loose and watery. No fever or chills. Her pancytopenia has also been getting worse and her oncologist recommended coming to the ER for blood cultures, stool pCR and c. diff testing today. She denies any significant abdominal pain, nausea or vomiting. She took an immodium this morning and diarrhea has actually improved today. She also noted an outbreak of shingles on her back for which she started acyclovir 2 days ago although she think she lesions have been going on for longer. She was seen in the ER yesterday and started on empiric Levaquin due to pancytopenia. Principal Diagnosis pancytopenia and diarrhea due to antineoplastic chemotherapy Discharge Exam PHYSICAL EXAMINATION Last 24h vital signs reviewed, see documentation in flowsheet General: comfortable appearing, no distress, sitting up in the chair by the window HEENT: Normocephalic, atraumatic, pupils round and equal, sclerae anicteric, no conjunctival injection, moist mucus membranes Lungs: Normal respiratory effort. Clear to auscultation bilaterally. No RRW Heart: Regular rate and rhythm, no murmurs. No JVD port left upper chest accessed clean dry and intact no erythema or tenderness Abdomen: Soft, nontender, nondistended. Bowel sounds present. Extremities: Warm, dry, well-perfused. No extremity edema. skin: She has several herpetic lesions midline of her lower thoracic back area, all of these lesions are crusted there is no evidence of dissemination, they are not in a dermatomal distribution rather a round distribution Neuro: Alert and oriented x 4, face symmetric, moves 4 extremities well Psych: Normal affect and behavior Discharge Data Allergies Allergy/AdvReac Type Severity Reaction Status Date / Time azithromycin Allergy Unknown Hives Verified 05/07/24 19:28 (hands) clarithromycin [From Biaxin] Allergy Unknown Unknown Verified 05/07/24 19:28 bee venom protein (honey bee) Allergy Hives Verified 05/07/24 19:28 Consultations 05/07/24 18:00 ED Decision to Admit Stat 05/07/24 22:36 Consult Oncology Routine Ordered Studies Chest X-Ray 05/07/24 16:06 XR chest 1V portable CLINICAL HISTORY: Sepsis TECHNIQUE: Single frontal radiograph of the chest was obtained. Comparison: Comparison is made to chest radiograph 01/13/2024 FINDINGS: No lines and tubes are seen. The cardiomediastinal silhouette is normal. The lungs are clear. No evidence of pleural effusion or pneumothorax. IMPRESSION: No acute abnormalities and in particular no radiographic evidence of pneumonia. ACT 112: Negative or not required by law. Electronically signed by: Osmany La M.D. 05/07/2024 5:13 PM 05/08/24 07:36 05/08/24 07:36 Hospital Course (1) Antineoplastic chemotherapy induced pancytopenia: 68-year-old woman with primary peritoneal carcinoma under treatment, had carboplatin and Taxol last 03/02, followed by cytoreduction surgery and intraperitoneal chemotherapy 04/23 at [facility]. Admitted with pancytopenia and diarrhea she did not have fever or evidence of sepsis. Blood cultures are pending stool C. 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 and it is HSV related not shingles, no evidence of dissemination platelets are low but no evidence of bleeding complications, continue to hold apixaban until platelet count improves to greater than 50 or possibly greater than 70 discussed with oncologist and she will have labs drawn on Friday, can be transfused if indicated at that time based on the time course she should be at her kennedi as she is 15 days out (2) Diarrhea: (3) Peritoneal carcinomatosis: Total Time Total Time Spent Total Time Spent (In Minutes): I personally spent: 35 minutes today on clinical care activities including: reviewing chart notes and vital signs reviewing labs discussion with specification consultant(s) examining and counseling the patient writing orders, discharge instructions documentation Discharge Plan Discharge Items Patient Disposition: Home - Self-Care Reason For Visit: PANCYTOPENIA, DIARRHEA Discharge Diagnosis: pancytopenia due to chemotherapy, diarrhea Activity: Resume your previous activity Non-emergency contact: Primary Care Provider and Oncologist Call non-emergency contact if: you have any medication questions and your symptoms worsen Follow-up/Referrals: Sam Almonte MD [Primary Care Provider] - Diet: Regular Addtl Attending Provider Instructions: Your counts are low but you do not need a transfusion right now Dr. Moreland would like you to have your labs drawn Friday to check your counts Your ANC is up to 900 today, but you are anemic and platelet count is low. Seek medical attention if you have bleeding. If you need transfusion Friday it can be done at cancer center Come back to the ED if you have fever 101 or higher, chills, abdominal pain etc Stay on the levofloxacin and acyclovir It is fine to take imodium to treat the diarrhea. 1 or 2 tabs a day is not that much imodium. (max is 8 tabs a day). This is available over the counter -testing for C. diff and other causes of infectious diarrhea was negative Pending Studies at Discharge: Yes Stand-Alone Forms: My [facility] [place] Ce[place], Smoking Cessation Medications and DC Order Prescriptions: New loperamide 2 mg Capsule 2 mg PO Q4H PRN (Reason: loose stool) Qty: 0 0RF Rx Instructions: buy over the counter (AKA Imodium) Continued epinephrine 0.3 mg/0.3 mL auto-injector 0.3 mg IM UD PRN (Reason: Allergic Reaction) Qty: 2 3RF acyclovir 400 mg tablet 400 mg PO TID PRN (Reason: herpes outbreak) Qty: 90 3RF rizatriptan [Maxalt] 10 mg tablet See Rx Instructions PO .COMPLEX Qty: 7 3RF Rx Instructions: take 1 tab at onset of headache; if no relief may repeat 1 tab after at least 2 hrs; max = 3 tabs/24 hr PO acetaminophen 500 mg tablet 1,000 mg PO Q8H PRN (Reason: Pain) Patient Comments: CONFIRMED W/ PT AND ON [facility] DC SUMMARY- 05/04 oxycodone 5 mg tablet 5 mg PO Q6H PRN (Reason: pain) Patient Comments: CONFIRMED W/ PT AND ON [facility] DC SUMMARY-05/04 citalopram 10 mg tablet 10 mg PO QAM Qty: 90 3RF losartan 100 mg tablet 100 mg PO QAM Qty: 90 3RF levothyroxine 150 mcg tablet 150 mcg PO QAM Qty: 90 3RF prochlorperazine maleate 10 mg tablet 10 mg PO Q6H PRN (Reason: Nausea And Vomiting) levofloxacin 500 mg tablet 500 mg PO DAILY 7 Days Qty: 7 0RF Held apixaban 2.5 mg tablet 2.5 mg PO .ON HOLD Hold Instructions: Resume on 05/15/24. resume once platelet count recovers Patient Comments: CONFIRMED W/ PT AND ON [facility] DC SUMMARY-05/04 Discharge Orders: Discharge Order (Routine); Ordered 05/08/24 Ordered By: Marguerite Major/Other Patient Handouts: Cancer IP Therapy, Cancer: Preventing Infections, Cancer Tx Control Nausea Vomiting Admission Data Admit Date/Time: 05/07/24 18:08 Attending Provider: Marguerite Patel Admit Provider: Praveen Woodard Primary Care Provider: Sam Almonte Other Providers: Praveen Woodard; Chris Moreland Other Interventions: Discharge Summary Assessment (RN) Last Done: 05/08/24 16:00 Coding Level of Care Code 49819 INP/OBS DISCH >30 MIN Diagnoses Antineoplastic chemotherapy induced pancytopenia D61.810; T45.1X5A Diarrhea R19.7 Peritoneal carcinomatosis C78.6
== END 2024-05-08 17:45 | disposition home or self-care (01) | DRG 809 ==
LOC: ED 15:58 → SUATTDRO 18:08 → INTOOBSV 18:08 → 3N 18:08